=== PATIENT | female | born 1950 | race Caucasian/White ===

== ENCOUNTER 2020-06-12 11:18 | Inpatient (IN) | payer MEDICARE, OTHER ==
[~2020-06-12 11:18] MED LIST: LIPITOR 10MG TA10 MG PO; MESTINON60 MG PO; NORVASC5 MG PO; PREDNISONE 20MG20 MG PO; SYNTHROID50 MCG PO; TRIAMCINOLONE 080 GM TOP
[2020-06-12 12:35] LABS: BILIRUBIN NEGATIVE (NEGATIVE); BLOOD TRACE-INTACT Ery/uL (NEGATIVE); CLARITY CLEAR (CLEAR); COLOR YELLOW (YELLOW); GLUCOSE (U) NORMAL (NORMAL); LEUKOCYTES NEGATIVE Leu/uL (NEGATIVE); NITRITE NEGATIVE (NEGATIVE); PROTEIN NEGATIVE (NEGATIVE); SPECIFIC GRAVITY 1.015 (1.001-1.030); UROBILINOGEN 0.2 mg/dL (0.2-1.0); pH 6.5 (5.0-9.0)
[2020-06-12 12:47] LABS: URINARY WBC RARE
[2020-06-12 13:24] LABS: BASOPHIL 0.5 % (0-2); EOSINOPHIL 0.7 % (0-7); HCT 40.7 % (37.0-47.0); HGB 13.3 g/dl (12.5-16.0); LYMPHOCYTE 11.2 % (15-48); MCH 31.2 pg (25.0-31.0); MCHC 32.7 g/dL (32.0-36.0); MCV 95.5 fL (78.0-100.0); MONOCYTE 4.3 % (0-12); MPV 9.8 fL (6.0-9.5); NEUTROPHIL 82.7 % (41-80); NRBC 0; PLT 405 K/uL (150-400); RBC 4.26 M/uL (4.20-5.40); RDW 13.7 % (11.5-14.0); WBC 13.4 K/uL (4.0-10.5)
[2020-06-12 13:41] LABS: ALBUMIN 3.8 g/dL (3.4-5.0); BILIRUBIN - TOTAL 0.7 mg/dL (0.2-1.0); BUN/CREAT RATIO (CALC) 23.2 RATIO; CREATININE 0.82 mg/dL (0.51-0.95); GLOBULIN (CALCULATION) 4.7 g/dL; POTASSIUM 2.8 mmol/L (3.5-5.1); TOTAL PROTEIN 8.5 g/dL (6.4-8.2)
[2020-06-12 13:50] LABS: INR 0.99 (0.9-1.2); PROTHROMBIN TIME 12.4 SECONDS (11.4-13.6); PTT 22.4 SECONDS (22.2-34.7)
[2020-06-12] MEDS ORDERED: LOW DOSE ASPIRI81 MG PO (13:50)
[2020-06-12] MEDS ORDERED: PROBIOTIC1 EAC1 PO (13:50)
[2020-06-12] MEDS ORDERED: ACETAMINOPHEN500 M1 PO (13:51)
[2020-06-12] MEDS ORDERED: MOTRIN600 MG PO (13:52)
[2020-06-13 06:36] LABS: BASOPHIL 0.4 % (0-2); EOSINOPHIL 1.1 % (0-7); HGB 11.6 g/dl (12.5-16.0); LYMPHOCYTE 22.1 % (15-48); MCH 30.7 pg (25.0-31.0); MCHC 32.2 g/dL (32.0-36.0); MCV 95.2 fL (78.0-100.0); MONOCYTE 6.3 % (0-12); MPV 9.8 fL (6.0-9.5); NEUTROPHIL 69.6 % (41-80); NRBC 0; PLT 383 K/uL (150-400); RBC 3.78 M/uL (4.20-5.40); RDW 13.6 % (11.5-14.0); WBC 9.8 K/uL (4.0-10.5)
[2020-06-13 06:57] LABS: BUN/CREAT RATIO (CALC) 20.3 RATIO; CREATININE 0.79 mg/dL (0.51-0.95); MAGNESIUM 1.7 mg/dL (1.8-2.4); POTASSIUM 3.2 mmol/L (3.5-5.1)
[2020-06-13] MEDS ORDERED: PERCOCET 5-3251 EACH PO ×2 (09:52→09:59)
--- NOTE | 2020-06-13 15:05 | NUR ---
REPORTS SHE LIVES ALONE AND INDEPENDENT WITH CARE; PLEASE ADVISE OF ANY DISCHARGE NEEDS
[2020-06-14 06:12] LABS: BASOPHIL 0.2 % (0-2); EOSINOPHIL 0 % (0-7); HCT 28.3 % (37.0-47.0); HGB 9.1 g/dl (12.5-16.0); MCH 31.6 pg (25.0-31.0); MCHC 32.2 g/dL (32.0-36.0); MCV 98.3 fL (78.0-100.0); MONOCYTE 7.9 % (0-12); MPV 10.1 fL (6.0-9.5); NEUTROPHIL 76.4 % (41-80); NRBC 0; PLT 265 K/uL (150-400); RBC 2.88 M/uL (4.20-5.40); RDW 13.7 % (11.5-14.0); WBC 10.5 K/uL (4.0-10.5)
[2020-06-14 06:32] LABS: BUN/CREAT RATIO (CALC) 22.8 RATIO; CREATININE 1.01 mg/dL (0.51-0.95)
[2020-06-14 06:33] LABS: POTASSIUM 4.7 mmol/L (3.5-5.1)
[2020-06-14] MEDS ORDERED: ULTRA-LIGHT RO1 EACH XX (09:07)
[2020-06-14] MEDS ORDERED: FEOSOL325 MG PO (09:07)
[2020-06-14] MEDS ORDERED: ASPIRIN81 MG PO (09:07)
--- NOTE | 2020-06-14 10:27 | NUR ---
PT. TO D/C HOME. [facility] DELIVERED [facility]. PT. REQUESTED [facility] FOR PT AND NURSING ASSESSMENT. AFFLIATIONS EXPLAINED.
== END 2020-06-14 11:39 | disposition home health service (06) | DRG 522 ==
LOC: FER 11:18 → FMS 12:38
PROVIDERS: Emergency Medicine; Orthopaedic Surgery; ADMIT Internal Medicine
PROC: 0SRB04A Replacement of Left Hip Joint with Ceramic on Polyethylene Synthetic Substitute, Uncemented, Open Approach (ICD-10-PCS; principal; 2020-06-13 09:15)
DX: S72.012A Unspecified intracapsular fracture of left femur, initial encounter for closed fracture (principal); W01.0XXA Fall on same level from slipping, tripping and stumbling without subsequent striking against object, initial encounter; I10 Essential (primary) hypertension; E87.6 Hypokalemia; E03.9 Hypothyroidism, unspecified; R00.1 Bradycardia, unspecified; E66.9 Obesity, unspecified; G47.30 Sleep apnea, unspecified; Z96.652 Presence of left artificial knee joint; Z90.49 Acquired absence of other specified parts of digestive tract; Z88.1 Allergy status to other antibiotic agents
CPT/HCPCS: 36415; 71045; 73501; 73552; 76000; 80048; 80053; 81001; 83735; 85025; 85610; 85730; 86850; 86900; 86901; 88305; 93005; 94010; 97116; 97162; 97165; 97530-GP; 97535; C1713; C1776; J0171; J0697; J1100; J1170; J1885; J2250; J2270; J2405; J2704; J2795; J3475; J3480; J7120; U0002

== ENCOUNTER 2021-07-27 12:36 | Day surgery (SDCO) | payer MEDICARE, OTHER ==
[~2021-07-27] VITALS: Ht 167.6 cm; Wt 96.7 kg
[~2021-07-27 12:36] MED LIST changes: +ACETAMINOPHEN500 M1 PO; +ASPIRIN81 MG PO; +FEOSOL325 MG PO; +LOW DOSE ASPIRI81 MG PO; +MOTRIN600 MG PO; +PERCOCET 5-3251 EACH PO; +PROBIOTIC1 EAC1 PO; +ULTRA-LIGHT RO1 EACH XX
[2021-07-27 14:03] LABS: BASOPHIL 0.5 % (0-2); EOSINOPHIL 3.3 % (0-7); HCT 38.4 % (37.0-47.0); HGB 12.1 g/dl (12.5-16.0); LYMPHOCYTE 20.8 % (15-48); MCH 30.7 pg (25.0-31.0); MCHC 31.5 g/dL (32.0-36.0); MCV 97.5 fL (78.0-100.0); MONOCYTE 9.4 % (0-12); MPV 9.6 fL (6.0-9.5); NEUTROPHIL 65.6 % (41-80); NRBC 0; PLT 425 K/uL (150-400); RBC 3.94 M/uL (4.20-5.40); RDW 13.6 % (11.5-14.0); WBC 9.8 K/uL (4.0-10.5)
[2021-07-27 14:35] LABS: ALBUMIN 3.6 g/dL (3.4-5.0); BUN/CREAT RATIO (CALC) 14.4 RATIO; CREATININE 1.81 mg/dL (0.51-0.95); GLOBULIN (CALCULATION) 4.4 g/dL; POTASSIUM 4.2 mmol/L (3.5-5.1)
[2021-07-27 14:37] LABS: LACTIC ACID 1.4 mmol/L (0.4-1.9)
[2021-07-27 15:04] LABS: CORONAVIRUS 2019 SARS-COV-2 NEGATIVE (NEGATIVE); INFLUENZA A NAA NEGATIVE (NEGATIVE)
[2021-07-27 15:45] LABS: BILIRUBIN NEGATIVE (NEGATIVE); BLOOD NEGATIVE Ery/uL (NEGATIVE); CLARITY CLEAR (CLEAR); COLOR YELLOW (YELLOW); GLUCOSE (U) NORMAL (NORMAL); LEUKOCYTES NEGATIVE Leu/uL (NEGATIVE); NITRITE NEGATIVE (NEGATIVE); PROTEIN NEGATIVE (NEGATIVE); SPECIFIC GRAVITY 1.025 (1.001-1.030); UROBILINOGEN 0.2 mg/dL (0.2-1.0); pH 5.5 (5.0-9.0)
[2021-07-27] MEDS ORDERED: ASPIRIN EC81 MG PO (20:32)
[2021-07-27] MEDS ORDERED: LIPITOR 10MG TA10 MG PO (20:33)
[2021-07-27] MEDS ORDERED: HCTZ12.5 MG PO (20:37)
--- NOTE | 2021-07-27 22:18 | NUR ---
DID WALK TEST WITH PT ON RM AIR. PT SATS 98-99%. PT VERY WINDED AND COULD NOT CARRY ON A CONVERSATION
[2021-07-28 06:34] LABS: HCT 33.4 % (37.0-47.0); HGB 10.8 g/dl (12.5-16.0); MCH 31.2 pg (25.0-31.0); MCHC 32.3 g/dL (32.0-36.0); MCV 96.5 fL (78.0-100.0); MPV 9.4 fL (6.0-9.5); RBC 3.46 M/uL (4.20-5.40); RDW 13.6 % (11.5-14.0); WBC 6.4 K/uL (4.0-10.5)
[2021-07-28 06:55] LABS: BUN/CREAT RATIO (CALC) 18.6 RATIO; CREATININE 1.56 mg/dL (0.51-0.95); POTASSIUM 4.1 mmol/L (3.5-5.1)
--- NOTE | 2021-07-28 13:11 | NUR ---
07/28/21 Please consider full admit or discharge. Thank You!
[2021-07-28] MEDS ORDERED: VENTOLIN HFA IN18 GM INH (15:15)
== END 2021-07-28 15:44 | disposition home or self-care (01) ==
LOC: FER 12:36 → FMS 16:54
PROVIDERS: Emergency Medicine; Nurse Practitioner Acute Care; ADMIT Family Medicine
DX: R06.09 Other forms of dyspnea (principal); R09.02 Hypoxemia; N17.9 Acute kidney failure, unspecified; I12.9 Hypertensive chronic kidney disease with stage 1 through stage 4 chronic kidney disease, or unspecified chronic kidney disease; N18.9 Chronic kidney disease, unspecified; R19.7 Diarrhea, unspecified; R79.1 Abnormal coagulation profile; I95.1 Orthostatic hypotension; R42 Dizziness and giddiness; E87.2 Acidosis; E66.01 Morbid (severe) obesity due to excess calories; M19.90 Unspecified osteoarthritis, unspecified site; Z20.822 Contact with and (suspected) exposure to COVID-19; Z86.73 Personal history of transient ischemic attack (TIA), and cerebral infarction without residual deficits; Z90.710 Acquired absence of both cervix and uterus; Z86.16 Personal history of COVID-19; Z90.3 Acquired absence of stomach [part of]; Z96.652 Presence of left artificial knee joint; Z90.49 Acquired absence of other specified parts of digestive tract; Z96.642 Presence of left artificial hip joint; Z88.1 Allergy status to other antibiotic agents
CPT/HCPCS: 36415; 36600; 71045; 71250; 80048; 80053; 81003; 82803; 83605; 83880; 84145; 84484; 85025; 85379; 87040; 93005; 94010; 94640; 94760; G0378; U0002